=== PATIENT | male | born 1980 | race African-American/Black ===

== ENCOUNTER 2025-03-10 11:58 | Outpatient (CLI) | payer BC | END 2025-03-10 11:59 | disposition home or self-care (01) | LOC: CSHDTY/OP 11:58 | PROVIDERS: ATTEND Surgery | DX: Z71.3 Dietary counseling and surveillance (principal); E66.01 Morbid (severe) obesity due to excess calories | CPT/HCPCS: 97802 ==

== ENCOUNTER 2025-05-05 14:28 | Outpatient (CLI) | payer BC | END 2025-05-05 14:29 | disposition home or self-care (01) | LOC: CSHDTY/OP 14:28 | PROVIDERS: ATTEND Surgery | DX: Z71.3 Dietary counseling and surveillance (principal); E66.01 Morbid (severe) obesity due to excess calories | CPT/HCPCS: 97802 ==